=== PATIENT | female | born 1980 | race Caucasian/White ===

== ENCOUNTER 2019-03-06 15:04 | Day surgery (SDC) | payer BC ==
[~2019-03-06] VITALS: Ht 170.2 cm; Wt 87.5 kg
[2019-03-06] VITALS (14 sets, daily range): BP systolic 90–119; BP diastolic 58–81; PULSE 86–108; RESP 12–29; Ht 170.2 cm; Wt 87.5 kg
[2019-03-06] MEDS ORDERED: BUPIVACAINE 0.5% (SDV) 30 ML INJ ONE ×2 (15:27→21:47)
[2019-03-06] MEDS ORDERED: LACTATED RINGER'S 1,000 ML IV SCH (16:00)
[2019-03-06] MEDS ORDERED: ENOX80DI2 SC (16:02)
[2019-03-06] MEDS ORDERED: OMEGA PO (16:02)
[2019-03-06] MEDS ORDERED: SERT50TA PO (16:02)
[2019-03-06] MEDS ORDERED: PREN1TAB13 PO (16:02)
--- NOTE | 2019-03-06 17:54 | PREAC ---
Date/Time of Note Date/Time of Note DATE: 03/06/19 TIME: 17:51 Anesthesia Eval and Record Evaluation Time Pre-Procedure Interview DATE: 03/06/19 TIME: 17:51 Age 38 Sex female NPO: 8 hrs Preoperative diagnosis left elbow fracture Planned procedure orif left elbow fracture Past Medical History Past Medical History: Includes (factor 2 deficiency, history of DVT of left iliac artery, on Lovenox last dose 48 hours before. pre-op heart monitoring done. Dr Horowitz laborist on-call is informed about the patients history and planned surgery) Surgery & Anesthesia Issues No known issue (left bks, c section) Meds Anticoagulation: No Beta Selena within 24 hr: No Reason Beta Selena not given: Pt. not on B-Selena Reported Medications Pnv95/Ferrous Fumarate/FA ( Vitamins Tablet) 1 Each Tablet, 1 EACH PO, TAB 03/06/19 [[facility]] No Conflict Check, 3 CAP PO DAILY 03/06/19 Enoxaparin Sodium (Enoxaparin Sodium) 80 Mg/0.8 Ml Syringe, 100 MG SC DAILY, SYR 03/06/19 Sertraline Hcl* (Zoloft*) 50 Mg Tablet, 50 MG PO DAILY, #30 TAB 03/06/19 Current Medications Lactated Ringer's 1,000 ml @ 25 mls/hr Q24H IV Last administered on 03/06/19at 16:26; Admin Dose 25 MLS/HR; Start 03/06/19 at 16:00 Meds reviewed: Yes Allergies Coded Allergies: No Known Allergies (Verified Allergy, Unknown, 03/06/19) Allergies Reviewed: Yes Labs/Studies Labs Reviewed: Reviewed by anesthesiologist test: N/A Pre-procedure Exam Last vitals Vital Signs Date Temp Pulse Resp B/P (MAP) Pulse Ox O2 O2 Flow FiO2 Time Delivery Rate 03/06/19 97.1 103 18 110/70 97 Room Air 15:47 (83) Airway: Adequate mouth opening, Adequate thyromental dist Mallampati: Mallampati II Teeth: Normal Lung: Normal Heart: Normal ASA Physical Status ASA physical status: 2 Emergency: E Planned Anesthetic General/MAC: ETT Nerve block: Brachial plexus (left) Planned Pain Management Single shot nerve block, Parenteral pain med Pre-operative Attestations Prior to commencing anesthesia and surgery, the patient was re-evaluated, there was verification of: *The patient's identity *The results of appropriate recent lab work and preoperative vital signs *The above evaluation not changing prior to induction *Anesthetic plan, risk benefits, alternative and complications discussed with patient/family; questions answered; patient/family understands, accepts and wishes to proceed. Judson Morales M.D. Mar 06, 2019 17:54
[2019-03-06] MEDS ORDERED: ROCURONIUM 50 MG INJ ONE (18:13)
[2019-03-06] MEDS ORDERED: NEOSTIGMINE 3 MG/3 ML SYRINGE ONE (18:13)
[2019-03-06] MEDS ORDERED: GLYCOPYRROLATE 0.4 MG INJ ONE (18:13)
[2019-03-06] MEDS ORDERED: ONDANSETRON 4 MG INJ ONE (18:13)
[2019-03-06] MEDS ORDERED: CEFAZOLIN 1 GM INJ ONE (18:13)
[2019-03-06] MEDS ORDERED: PROPOFOL 0 ML ONE (18:13)
[2019-03-06] MEDS ORDERED: DEXAMETHASONE 4 MG/ML 5 ML INJ ONE (18:14)
[2019-03-06] MEDS ORDERED: FENTAnyl 50 MCG/ML VIAL ONE (18:16)
[2019-03-06] MEDS ORDERED: ROPIVACAINE 0.5 % 30 ML VIAL ONE (18:16)
--- NOTE | 2019-03-06 18:36 | HPN ---
Date/Time of Note Date/Time of Note DATE: 03/06/19 TIME: 18:36 Interval H&P Admission Note Pt. seen H&P reviewed: No system changes ESVIN EDWARDS Mar 06, 2019 18:36
--- NOTE | 2019-03-06 18:56 | CONS ---
Assessment/Plan Assessment/Plan Hospital Course (Demo Recall) IUP at 32 weeks History of x1 History of thrombophilia. Currently on Lovenox during the . Off of Lovenox since 2 days ago due to anticipated surgery in the left elbow Patient had care and follow-up with perinatologist. OB Dr. Mc Valentino at [facility]. Currently at this time no obstetric records are available. Patient appears very well historian Left elbow fracture. Patient currently in the process of getting surgery in the left elbow for repair. Consulted by anesthesiologist for recommendation. Per discussion with anesthesiologist plan is to start with block but there is a possibility of turning to general anesthesia. Length of her seizure estimate only 1 and half hours. Discussed with the patient low risk procedure and low risk for delivery. Commended the patient to have NST prior to proceed with above-stated surgery. Postoperatively need to have NST every shift as well. I also discussed with perinatologist Dr Shaffer about recommendation who recommended, if the length of surgery more than 2 hours and general anesthesia recommended intrapartum monitoring. Risk of emergency section in case of nonreassuring heart tracing in case of general anesthesia and prolonged surgery discussed with the patient as well. Risk of complications including delivery and complication of prematurity including short-term and long-term disability, admission to the NICU discussed as well with the patient. Patient verbalized understanding and all questions were answered to patient's best satisfaction. Recommended to maintain position of the mom to the left lateral tilt in order to maintain good oxygenation and placental circulation. Plan of care discussed with anesthesiologist and with the patient. Postoperatively patient is to proceed with NST every shift as long as a stay in the hospital. Follow-up within 1 to 2 days after discharge from the hospital with her OB discussed. Of note that patient has not received steroid. Patient states that this has been discussed with her OB and perinatologist who both agreed due to low risk nature of the procedure no requirement for steroid Patient states that except blood transfusion in case of emergency. Risk of section including risk of infection, bleeding, damage to surrounding structures in case of emergency section, risk of scar, pain, damage to the fetus and complications and risks associated with blood transfusion in case of emergency including blood borne infection including HIV, hepatitis B C and transfusion reactions discussed with patient in detail. Informed consent was obtained. All questions were answered to patient with satisfaction For pain control postoperatively and avoid of using NSAIDs due to risk of oligohydramnios. Choice of postop pain medication would be narcotic and Tylenol as needed This case has been signed out to the upcoming OB hospitalist Dr. Durand, Consultation Date/Type/Reason Admit Date/Time March 06, 2019 Date of Consultation: Mar 06, 2019 Type of Consult Obstetric consultation prior to surgery Reason for Consultation OB evaluation and recommendation pre-operatively, done by anesthesiologist Date/Time of Note DATE: 03/06/19 TIME: 18:40 Hx of Present Illness I was called by anesthesiologist for recommendation preoperatively for this 38-year-old pleasant G2, P1 female with intrauterine at 32 weeks with care with healthcare partner, and history of left elbow fracture 6 weeks ago that currently is in the process of going to the OR for surgery of the left elbow. Patient was seen in preop area. 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 Her stated due date is May 01, 2019. She is 32 weeks . Patient reports that she has been scheduled for section due to history of and blood clotting disorder at 38 weeks. Patient presented care with healthcare partner and OB Dr. Mc nicolas. She had been seen at [facility] perinatology during her course for consultation and evaluation. Reports history of blood clotting disorder after her last delivery. 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 Patient reports a strong family history of blood clotting disorder as well. She reports history of blood clot disorder in her father as well as sister who also was diagnosed with DVT. Patient had been on Lovenox during that was a stopped 2 days ago in anticipation of repair of the left elbow fracture. Patient currently denies any contraction, leaking of fluid, vaginal bleeding or decreased movement. Constitutional: no complaints; No improved, No chills, No diaphoresis, No disoriented, No febrile, No poor po, No requiring IVF, No requiring O2, No other Eyes: No no complaints, No pain, No discharge, No redness, No visual change, No other ENT: No no complaints, No bleeding, No pain, No congestion, No discharge, No dysphagia, No sore throat, No other Respiratory: No no complaints, No pain, No cough, No pleuritic pain, No shortness of breath, No sputum, No wheezing, No other Cardiovascular: No no complaints, No chest pain, No edema, No lightheadedness, No orthopenea, No palpitations, No paroxysmal nocturnal dyspnea, No other Gastrointestinal: No no complaints, No pain, No blood, No constipation, No decreased appetite, No diarrhea, No flatus, No nausea, No passing stool, No vomiting, No other Genitourinary: No no complaints, No bleeding, No dysuria, No discharge, No flank pain, No hematuria, No other Musculoskeletal: bone/joint pain, other (Swelling in the left arm and elbow. She has a bandage on the left elbow from the left forearm to left arm. There is also evidence of amputation of the left lower extremity noted.) Skin: No no complaints, No bruising, No erythema, No laceration, No pruritis, No rash, No skin lesions, No other Neurologic: No no complaints, No confusion, No dizziness, No focal-weakness, No headache, No syncope, No seizure, No other Endocrine: No no complaints, No polyuria, No polydypsia, No dry skin, No temp intolerance, No other Lymphatic: No no complaints, No adenopathy, No tender nodes, No lymphadema, No other Past Medical History Past medical history: History of blood clotting disorder. History of extensive DVT in the left lower extremity after her Was on Lovenox and then on Xarelto that was switched back to Lovenox due to breast-feeding. Conceived with the next and continued on Lovenox History of multiple fracture, trauma induced and extremities including right foot. 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 Home Meds Reported Medications Pnv95/Ferrous Fumarate/FA ( Vitamins Tablet) 1 Each Tablet, 1 EACH PO, TAB 03/06/19 [[place]] No Conflict Check, 3 CAP PO DAILY 03/06/19 Enoxaparin Sodium (Enoxaparin Sodium) 80 Mg/0.8 Ml Syringe, 100 MG SC DAILY, SYR 03/06/19 Sertraline Hcl* (Zoloft*) 50 Mg Tablet, 50 MG PO DAILY, #30 TAB 03/06/19 Medications Current Medications Lactated Ringer's 1,000 ml @ 25 mls/hr Q24H IV Last administered on 03/06/19at 16:26; Admin Dose 25 MLS/HR; Start 03/06/19 at 16:00 Allergies: Coded Allergies: No Known Allergies (Verified Allergy, Unknown, 03/06/19) Past Surgical History x1 History of amputation of the left lower extremity History of surgery on the right foot trauma induced History of surgery in the left hip Past Surgical Hx: other Family History Significant Family History: other (Family history of blood clotting disorder. Father from blood clotting disorder. Sister with history of DVT.) Social History Alcohol Use: none Smoking Status: Former smoker Drug Use: none Exam/Review of Systems Exam Vitals Vital Signs Date Temp Pulse Resp B/P (MAP) Pulse Ox O2 O2 Flow FiO2 Time Delivery Rate 03/06/19 97.1 103 18 110/70 97 Room Air 15:47 (83) Constitutional: alert, oriented, well developed Psych: no complaints, nl mood/affect Head: normocephalic, atraumatic Eyes: nl conjunctiva, EOMI, nl lids ENMT: nl external ears & nose, nl lips & teeth, nl nasal mucosa & septum Neck: supple, non-tender Respiratory: clear to auscultation, normal air movement Cardiovascular: regular rate and rhythm, nl pulses Gastrointestinal: soft, nl liver, spleen, non-tender Genitourinary - Female: other (Abdomen, gravid, fundal height correlate with gestational age. No tenderness, no rebound tenderness, no guarding, no rigidity, negative Knight sign negative McBurney tenderness. No CVA tenderness.) Musculoskeletal: swelling ([place] of the left arm noted. Bandage in the left arm due to recent injury to the left elbow as well as evidence of amputation of the left lower extremity noted), other Neurological: [employer] II-XII intact, nl mental status, nl speech, nl strength Skin: rash or lesions Lymph: nl lymph nodes Medications Medication Current Medications Lactated Ringer's 1,000 ml @ 25 mls/hr Q24H IV Last administered on 03/06/19at 16:26; Admin Dose 25 MLS/HR; Start 03/06/19 at 16:00 SHRUTHI ESPINOSA MD Mar 06, 2019 18:51
[2019-03-06] MEDS ORDERED: POLYMYXIN/BACITRACIN 1L IRRIG IRR ONE (19:40)
[2019-03-06] MEDS ORDERED: KETAMINE (50 MG/ML) 10 ML VIAL ONE (20:00)
--- NOTE | 2019-03-06 21:00 | OPPN ---
Date/Time of Note Date/Time of Note DATE: 03/06/19 TIME: 20:59 Operative Report Preoperative Diagnosis left distal humerus lateral condyle intra-articular fracture, capitellum Postoperative Diagnosis left distal humerus lateral condyle intra-articular fracture, capitellum left elbow LUCL ligament rupture Operation/Procedure Performed left distal humerus lateral condyle intra-articular fracture, capitellum ORIF left elbow LUCL ligament repair Surgeon see signature line service assistant none Anesthesia: other (peripheral nerve block) Estimated blood loss: 0 - 10 ml's Transfusion Required none Specimen none Grafts/Implants none Complications none ESVIN EDWARDS Mar 06, 2019 21:00
[2019-03-06] MEDS ORDERED: LIDOCAINE 1% (MPF) 30 ML INJ ONE (21:47)
--- NOTE | 2019-03-07 02:49 | OPR ---
DATE OF OPERATION: 03/06/2019 SURGEON: Angel Rivera MD ANESTHESIA: Peripheral nerve block. PREOPERATIVE DIAGNOSIS: Left elbow lateral condyle intra-articular fracture, capitellum fracture. POSTOPERATIVE DIAGNOSES: 1. Left elbow lateral condyle intra-articular fracture, capitellum fracture. 2. Partial rupture of the left elbow lateral ulnar collateral ligament. PROCEDURE: 1. Open reduction internal fixation left elbow lateral condyle humerus fracture, intra-articular, ca pitellum fracture. 2. Repair of the left elbow lateral ulnar collateral ligament. OPERATIVE FINDINGS: Displaced capitellum fracture, intra-articular distal humerus fracture at the le ft elbow with tearing of the lateral ulnar collateral ligament. INDICATION FOR PROCEDURE: This is a 38-year-old female with injury to the left elbow, who was seen i clinic and diagnosed with displaced capitellum fracture. We discussed the options and the patient elected to proceed with surgical intervention, understanding the risks and benefits. DESCRIPTION OF PROCEDURE: The patient was seen in the preoperative area and all further questions we re answered. Again, she gave informed consent understanding the risks and benefits. In the preopera tive suite, a peripheral nerve block was performed by the anesthesia team. The patient was taken to operative suite and laid in supine position. The patient was given Ancef 2 grams IV and tourniquet p laced in the left upper extremity. Left upper extremity was prepped with ChloraPrep stick and draped in usual sterile fashion. Esmarch bandage was used to exsanguinate the extremity and tourniquet inf lated to 250 mmHg. A curvilinear incision over the lateral elbow was utilized with sharp dissection carried down through skin and subcutaneous tissue. The fascia overlying the radiocapitellar joint wa s visualized and a fascial split and capsulotomy was made at the center of the access erring slightly anterior. A full thickness fascial and capsular flap was elevated down to the anterior aspect of th e lateral epicondyle proximally and the anterior half of the radial head distally. There was void wh ere the lateral condyle anatomically sits and inspection in the anterior elbow showed a displaced fra cture fragment, significantly displaced anterior and proximal. The fracture fragment was mobilized a nd was brought down into a more anatomic position. With the fracture held in a reduced position 3 gu idewires for the Acutrak Micro Screws were placed through the fragment into the distal humeral shaft. X-ray imaging showed appropriate hardware placement and bony alignment. A drill was used to establ wendy pads for the headless compression screws and 3 headless compression screws, Acutrak Micro were pl aced across the fracture site and were buried subchondral. The elbow was ranged and was found to hav e smooth gliding motion from full extension to 120 degrees of flexion. Pronation and supination were intact as well. The wound was copiously irrigated and I then inspected the ligament at the lateral elbow. There was tearing of the lateral ulnar collateral ligament which was repaired with suture. A fter repair of the lateral ulnar collateral ligament. The wound was copiously irrigated and the caps ular layer was closed with a running 4-0 Monocryl. Skin closed with 5-0 nylon. Xeroform placed over the wounds followed by sterile gauze, Webril, and a long arm splint. Tourniquet deflated after 62 m inutes and patient was awakened from anesthesia. She was taken the postoperative suite in stable con dition, tolerated the procedure well without complication. SPECIMENS: None. ESTIMATED BLOOD LOSS: 5 mL. COUNTS: Sponge, instrument, needle counts correct. TOURNIQUET TIME: 62 minutes. CONDITION ON DISCHARGE: Stable. The patient was given a nonrefillable 5-day prescription for pain medication for surgery today. Dictated By: ANGEL MALDONADO/TRISH Conf#: [id number] DID#: [id number]
--- NOTE | 2019-03-07 08:59 | PAC ---
Date/Time of Note Date/Time of Note DATE: 03/07/19 TIME: 08:58 Post-Anesthesia Notes Post-Anesthesia Note Last documented vital signs Vital Signs Date Temp Pulse Resp B/P (MAP) Pulse Ox O2 O2 Flow FiO2 Time Delivery Rate 03/06/19 108 17 107/69 96 Room Air 22:31 (82) 03/06/19 98.3 21:24 Activity: WNL Respiratory function: WNL Cardiovascular function: WNL Mental status: Baseline Pain reasonably controlled: Yes Hydration appropriate: Yes Nausea/Vomiting absent: Yes Judson Morales M.D. Mar 07, 2019 08:59
== END 2019-03-06 23:01 | disposition home or self-care (01) ==
LOC: SDS 15:04
PROVIDERS: ATTEND Orthopaedic Surgery Hand Surgery
DX: S42.452D Displaced fracture of lateral condyle of left humerus, subsequent encounter for fracture with routine healing (principal); S53.442D Ulnar collateral ligament sprain of left elbow, subsequent encounter; X58.XXXD Exposure to other specified factors, subsequent encounter
CPT/HCPCS: 24343; 24579; 73080; 86850; 86900; 86901; C1713; J2795; J0690; J1100; J2405; J2710; J3010